=== PATIENT | male | born 1950 | race African-American/Black ===

== ENCOUNTER 2019-02-09 16:31 | Inpatient (IN) | payer MEDICARE ==
[2019-02-09] MEDS ORDERED: Acetaminophen 325 MG TAB PO PRN (16:48)
[2019-02-09] MEDS ORDERED: Ondansetron PF 4 MG/2 ML Vial IVP PRN (16:48)
[2019-02-09 17:30] LABS: #Lymphocytes 0.6 thou/uL (1.20-3.40); #Monocytes 0.1 thou/uL (0.11-0.59); #Neutrophils 4.2 thou/uL (1.40-6.50); %Basophils 0.7 % (0.0-1.0); %Eosinophils 0.1 % (0.0-10.0); %Lymphocytes 11.9 % (21.0-51.0); %Monocytes 1.3 % (0.0-10.0); Hemoglobin 13.6 g/dL (14.0-18.0); Mean Corpuscular HGB CONC 33.1 g/dL (32.0-36.0); Mean Corpuscular Hemoglobin 31.3 pg (27.0-31.0); Mean Corpuscular Volume 94.5 fL (78.0-98.0); Mean Platelet Volume 6.6 fL (7.4-10.4); Platelet Count 305 thou/uL (130-400); RBC Distribution Width 12.1 % (11.5-14.5); Red Blood Cell (RBC) Count 4.34 mill/uL (4.70-6.10); White Blood Cell (WBC) Count 4.8 thou/uL (4.8-10.8)
[2019-02-09 17:36] LABS: INR-International Normal Ratio 1.1; PTT 27.8 SEC (22.9-36.1); Prothrombin Time 13.7 SEC (12.0-14.7)
[2019-02-09 17:50] LABS: Anion Gap 11 mmol/L (10-20); BUN (Urea Nitrogen) 10 mg/dL (8.4-25.7); Calc. Creatinine Clearance 0 mL/min (70-130); Calcium 9.1 mg/dL (7.8-10.44); Carbon Dioxide 24 mmol/L (23-31); Chloride 103 mmol/L (98-107); Estimated GFR-MDRD Greater than 90; Glucose 186 mg/dL (80-115); Potassium 3.8 mmol/L (3.5-5.1); Sodium 134 mmol/L (136-145)
[2019-02-09] MEDS ORDERED: traZODone HCl 150 MG TAB PO PRN (17:50)
[2019-02-09] MEDS: Sodium Chloride 0.9% 1,000 ML IV SCH ×2 (18:14→20:02)
[2019-02-09] MEDS: Dexamethasone 4 MG in Sodium Chloride 0.9% 50 ML IVPB SCH ×2 (18:21→23:02)
--- NOTE | 2019-02-09 18:36 | CT ---
CT cervical spine without contrast: Multiple axial tones obtained through cervical spine with multiplanar reconstruction. INDICATIONS: Cervical stenosis with spinal cord compression. Preop. COMPARISON: none FINDINGS: Moderate to severe hypertrophic degenerative changes of cervical spine noted. Loss of disc space at a ll levels. Prominent hypertrophic spurring from the cervical vertebra seen anteriorly and laterally with bridging osteophytes. Posterior spondylosis is prominent multiple levels as described. No evidence of acute fracture. C3-4: Posterior disc bulge and spondylosis compress the cord centrally and to the right producing mod erate central canal stenosis. Bilateral foraminal stenosis. C4-5: Disc bulge and spondylosis mild compressed anterior cord. Bilateral foraminal stenosis. Moderat e cervical canal stenosis. C5-6: Posterior disc bulge and spondylosis compress the cord. Moderate cervical canal stenosis. Bilat eral foraminal stenosis. C6-7: Posterior disc bulge and spondylosis compress the cord. Moderate to severe cervical canal steno sis and cord compression. Bilateral foraminal stenosis. IMPRESSION: Moderate to severe hypertrophic degenerative changes of the cervical spine. Cord compression and cerv ical canal stenosis at multiple levels as noted above.
--- NOTE | 2019-02-09 18:59 | PRG ---
DATE OF SERVICE: 02/09/2019 ADDITIONAL DICTATED FOR PHYSICIAN: Huang Fernandez MD SUBJECTIVE: This is a progress note for Mr. You upon his arrival to [facility]. He was transferred from [facility], and a complete H and P consult note was dictated with Alfonzo. The patient remains stable at this time. He was transferred for multilevel severe cervical stenosis and spinal cord compression associated with right upper and lower extremity paresthesias and right upper extremity weakness. He reports imbalance and multiple recent falls over the last several weeks. He denies any complaints of pain in his neck, arms, or legs. He arrives in an [place] collar that was ordered prior to transfer. He received 10 mg of Decadron IV and 40 mg of Protonix IV prior to transfer. PLAN: At this time is to take the patient to the OR tomorrow morning for urgent surgical decompression of his cervical spine. He will be undergoing a C3 through C7 ACDF as well as C3 through C7 laminectomies, partial facetectomies, and foraminotomies with screw and georgette fixation. Risks versus benefits of this surgery were discussed with the patient this evening with his family at bedside. All questions were answered at this time. Dr. Fernandez will meet the patient tomorrow morning and again review surgical plan and answer any further questions the patient or family may have. MRI of the cervical spine was completed at [facility], however, I have ordered a CT of the cervical spine without contrast for further surgical planning. I have ordered 4 mg of Decadron q.6 hours as well as 40 mg of Protonix daily. I have also ordered trazodone as this is one of the patient's home medications that he is requested to help with sleeping. The patient will be n.p.o. at midnight. Please call with any changes. Otherwise, we will see the patient in the morning and take him to surgery. Job ID: [id number]
[2019-02-09] MEDS: HYDROcodone/Acetaminophen 7.5/325 mg Tablet PO PRN (20:03)
[2019-02-09 22:21] VITALS: BMI 23.6
[2019-02-10 05:42] LABS: #Lymphocytes 0.9 thou/uL (1.20-3.40); #Monocytes 0.3 thou/uL (0.11-0.59); #Neutrophils 4.7 thou/uL (1.40-6.50); %Basophils 0.1 % (0.0-1.0); %Lymphocytes 15.3 % (21.0-51.0); %Monocytes 4.6 % (0.0-10.0); Hemoglobin 12.6 g/dL (14.0-18.0); Mean Corpuscular HGB CONC 32.5 g/dL (32.0-36.0); Mean Corpuscular Hemoglobin 30.7 pg (27.0-31.0); Mean Corpuscular Volume 94.5 fL (78.0-98.0); Mean Platelet Volume 6.7 fL (7.4-10.4); Platelet Count 289 thou/uL (130-400); RBC Distribution Width 12.1 % (11.5-14.5); Red Blood Cell (RBC) Count 4.11 mill/uL (4.70-6.10); White Blood Cell (WBC) Count 5.9 thou/uL (4.8-10.8)
[2019-02-10] MEDS: Dexamethasone 4 MG in Sodium Chloride 0.9% 50 ML IVPB SCH ×3 (05:52→17:20)
[2019-02-10 05:57] LABS: Anion Gap 10 mmol/L (10-20); BUN (Urea Nitrogen) 10 mg/dL (8.4-25.7); Calc. Creatinine Clearance 102 mL/min (70-130); Calcium 8.9 mg/dL (7.8-10.44); Carbon Dioxide 23 mmol/L (23-31); Chloride 106 mmol/L (98-107); Estimated GFR-MDRD Greater than 90; Glucose 170 mg/dL (80-115); Potassium 3.7 mmol/L (3.5-5.1); Sodium 135 mmol/L (136-145)
[2019-02-10] MEDS ORDERED: Sodium Chloride 0.9% 10 ML ONE ×2 (06:25→06:59)
[2019-02-10] MEDS ORDERED: Bacitracin Zinc Ointment 30 gm TUBE ONE (06:25)
[2019-02-10] MEDS ORDERED: Thrombin 5000 UNITS/5 ML VIAL ONE ×2 (06:25→11:50)
[2019-02-10] MEDS ORDERED: Midazolam HCl 2 mg/2 ml Vial ONE (06:38)
[2019-02-10] MEDS ORDERED: Fentanyl 250 MCG/5 ML VIAL ONE (06:38)
[2019-02-10] MEDS ORDERED: SUGAMMADEX SODIUM 500 MG/5 ML VIAL ONE (06:39)
[2019-02-10] MEDS ORDERED: HYDROmorphone 0.5 MG/0.5 ML SYRINGE ONE (06:39)
[2019-02-10] MEDS ORDERED: SUGAMMADEX SODIUM 200 MG/2 ML VIAL ONE (06:39)
[2019-02-10] MEDS ORDERED: Fentanyl 100 MCG/2 ML VIAL ONE ×2 (08:56→13:41)
[2019-02-10] MEDS ORDERED: FLU VACC TS2019-20(65YR UP)/PF 180 MCG/0.5 ML SYRINGE IM ONE (09:00)
[2019-02-10] MEDS ORDERED: Prevnar 13-Val Conj/PF 0.5 ML SYRINGE IM ONE (09:00)
[2019-02-10] MEDS ORDERED: Dexamethasone 20 MG/5 ML VIAL ONE (10:17)
[2019-02-10] MEDS ORDERED: PROPOFOL 200 MG/20 ML VIAL ONE (10:17)
[2019-02-10] MEDS ORDERED: ePHEDrine/0.9% NaCl/PF SYRINGE 50 mg/10 ml ONE (10:17)
[2019-02-10] MEDS ORDERED: Ondansetron PF 4 MG/2 ML Vial ONE (10:17)
[2019-02-10] MEDS ORDERED: Rocuronium Bromide 10 MG/ML (10ML VIAL) ONE (10:17)
[2019-02-10] MEDS ORDERED: PHENYLEPHRINE-NS 100 MCG/ML 10 ML SYRINGE ONE ×2 (10:17→12:01)
[2019-02-10] MEDS ORDERED: Rocuronium Bromide 50 MG/5 ML VIAL ONE (10:33)
[2019-02-10] MEDS ORDERED: CEFAZOLIN 1 GM VIAL ONE (10:33)
--- NOTE | 2019-02-10 14:14 | OP ---
DATE OF PROCEDURE: 02/10/2019 LOCATION: OR 12. STORE HOST: Kirsten Llamas PA-C. PREPROCEDURE DIAGNOSES: Multilevel cervical myelopathy and radiculopathy with acute on subacute dysfunction with circumferential stenosis. POSTPROCEDURE DIAGNOSIS: Multilevel cervical myelopathy and radiculopathy with acute on subacute dysfunction with circumferential stenosis. PROCEDURES PERFORMED: 1. Anterior C3-C4, C4-C5, C5-C6, C6-C7 decompressions, diskectomies, placement of interbody spacers, packed with local bone autograft obtained from same incision for allograft and arthrodesis C3-C4, C4-C5, C5-C6, C6-C7. 2. Anterior cervical plate and screw fixation, C3, C4, C5, C6, and C7. 3. Use of operative microscope for microdissection. 4. C3, C4, C5, C6, C7 laminectomies, partial facetectomies, and foraminotomies. 5. Screw and georgette fixation C3, C4, C5, C6, and C7. 6. Posterior lateral arthrodesis C3, C4, C5, C6, C7 with use of local bone autograft and allograft for arthrodesis. DESCRIPTION OF PROCEDURE: After informed consent was obtained from the patient, the patient was brought to the OR. Proper patient, pause, and identification were carried out. He was placed under excellent general endotracheal anesthesia and positioned supine on the OR table. Cervical spine was kept in neutral position. We then identified a right anterior oblique maverick to allow for approach at C3, C4, C5, C6, C7 segments. This was drawn out. The area was sterilely cleansed, prepared, and draped. Proper patient, pause, and identification were carried out. The wound was then opened following sterile cleansing, preparation, and draping, then proceeded lateral to the larynx and pharynx and medial to the right carotid sheath. We identified the prevertebral layer of deep cervical fascia and the longus colli muscles. These were swept laterally and retraction placed and removed osteophytes throughout multiple levels and distraction at C3-C4 then occurred. The microscope was brought in for microdissection and performed a C3-C4 diskectomy with uatsdin of lordosis and decompression of neural elements. This space was packed with local bone autograft, obtained from same incision on allograft at C3-C4, and this was repeated at C4-C5, C5-C6, C6-C7 with decompressions of the spinal cord nerve roots, placement of interbody spacer with endplate preparation, and arthrodesis initiation from C3 through C7. We then placed anterior cervical plate and screw fixation from C3 through C7. Final tightening localization confirmed satisfactory placement. Copious irrigation occurred throughout as did maximizing hemostasis. The wound was then closed in anatomic layers following placement of a drain. The patient was placed prone following the Heller Lindsey heading pinner and secured to a skull and a posterior approach to allow from the midline linear region from C3 through C7 was drawn out. This area was sterilely cleansed, prepared, and draped. Proper patient, pause, and identification were carried out again. The wound was then opened with combination of sharp, monopolar, and blunt dissection, and we identified C3, C4, C5, C6, C7 dorsal spines and lamina and facet complexes. Screws were then placed from C3 through C7 lateral mass region. Laminectomy was performed from C3 through C7 and a small amount of spinal fluid was identified in the left C5 region, where there was area of thinning of the dura. A small 6-0 Prolene suture was placed and there was no more CSF leak. There was a very little CSF loss. DuraSeal was placed over this region later in the case. Copious irrigation occurred throughout as did maximizing hemostasis. Rods were placed. Final tightening occurred. Posterolateral arthrodesis was initiated with local bone autograft obtained from the same incision on allograft. The wound was then hemostasis maximally throughout and closed in anatomic layers following sprinkling of vancomycin powder. The patient then emerged from anesthesia. Job ID: [id number]
--- NOTE | 2019-02-10 14:36 | HP ---
SUBJECTIVE: Mr. You is a 68-year-old man, who has had an acute on subacute decline in spinal cord function and that he has gotten weaker in his right greater than left upper extremities with increased dysfunction in his wrist and finger extension, contracture development, and hand intrinsic weakness with falls. The most recent fall resulted in increase in all of the symptoms. An MRI done at [facility] demonstrated multilevel cervical canal compromise, in particular with cord contusion and C3-C4 circumferential stenosis with multilevel bilateral neuroforaminal stenosis from C3 through C7. CT scan confirmed this with a loss of lordosis as well with significant osteophytic overgrowth. 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 He does have a hyperlipidemia and does use nicotine. Given the magnitude of the need for surgery, I have recommended transfer to [place], so that we could do this in an expeditious manner. He was kept for observation overnight. I met with he and his family. 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 He has mild lower extremity weakness as well throughout multiple myotomes. He has a well-fitting cervical collar. I have recommended surgery. I have recommended an anterior C3 through C7 and posterior C3 through C7 decompression, stabilization with anterior plating, and a posterior screw and georgette fixation. This would allow us to restore his normal lordosis and maximally decompress the spinal cord. The problem with only addressing C3-C4 is again I think his cord compression and his cord contusion as a major player obviously in his symptoms; however, his multilevel neuroforaminal stenosis will make any type of improvement in his distal hand function very difficult if not impossible unless we free this area up as well. This will allow us to stabilize the subaxial cervical spine anteriorly and posteriorly and avoid extension in the cervicothoracic junction. informed consent for that surgery. Goals, indications, risks, alternatives, complications were discussed in detail with the patient and his family. They wish that we proceed. I should note that approximately 3 months postoperative we will need to arrange for CTA and formal diagnostic and therapeutic cerebral angiogram for his PCOM aneurysm. DIAGNOSES: 1. Cervical myelopathy with multilevel radiculopathy and acute on subacute decompensation. 2. 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 3. Nicotine user. Job ID: [id number]
[2019-02-10] MEDS ORDERED: tiZANidine HCl 4 MG TAB PO PRN (15:58)
[2019-02-10] MEDS: Pantoprazole 40 MG VIAL IVP SCH (16:21)
[2019-02-10] MEDS ORDERED: Labetalol HCl 100 MG/20 ML VIAL SLOW IVP PRN (17:03)
[2019-02-10] MEDS: Morphine 2 MG/ML SYRINGE SLOW IVP PRN (17:18)
[2019-02-10] MEDS: Sodium Chloride 0.9% 1,000 ML IV SCH (17:20)
[2019-02-10] MEDS: CEFAZOLIN 2 GM in Premix Bag 1 BAG IVPB SCH (17:40)
[2019-02-10] MEDS: hydrALAZINE 20 MG/ML VIAL SLOW IVP PRN ×2 (17:46→21:08)
[2019-02-10] MEDS: HYDROcodone/Acetaminophen 7.5/325 mg Tablet PO PRN (20:53)
[2019-02-11] MEDS: Dexamethasone 4 MG in Sodium Chloride 0.9% 50 ML IVPB SCH ×4 (00:20→17:15)
[2019-02-11] MEDS: CEFAZOLIN 2 GM in Premix Bag 1 BAG IVPB SCH ×3 (00:22→16:31)
[2019-02-11] MEDS: hydrALAZINE 20 MG/ML VIAL SLOW IVP PRN ×2 (02:02→08:33)
[2019-02-11] MEDS ORDERED: Dexamethasone 4 MG TAB PO SCH (06:00)
[2019-02-11] MEDS: Pantoprazole 40 MG VIAL IVP SCH (08:33)
--- NOTE | 2019-02-11 09:25 | PRG ---
DATE OF SERVICE: 02/11/2019 Mr. You is 1 day out from anterior-posterior C3 through C7 decompression and fusion. Since surgery, Mr. You has regained the ability to straighten his fingers. He has regained motion in the right lower extremity. He is very excited with his neurological improvement. The neck is sore anteriorly and posteriorly. He has a little bit of dysphagia, but has done relatively well with liquids overnight. I do not see any fevers recorded among the electronic vital signs. Blood pressures have been in the 150s to 160s. Neurological examination, there is mild upper motor neuron weakness involving the hand intrinsics and the extensors of the upper extremities more so than the flexors. The anterior drain put out 60 mL by 6 p.m. last night and another 30 by 3 a.m. For Mr. You, we will continue to watch the drain output. I would like the anterior cervical drains to be very low output before removal. We will look for an average output of his drain less than 3 mL an hour on average before we can remove it. We will continue antibiotics until the drain is out. Mr. You will need occupational and physical therapy and perhaps inpatient rehab placement. I believe, he can move to the floor when there is a bed available to do so. Job ID: [id number]
[2019-02-11] MEDS ORDERED: Hydrocodone-Acetamin 15 ML UDCUP PO PRN (09:34)
--- NOTE | 2019-02-11 10:11 | CON ---
DATE OF CONSULTATION: 02/11/[address] Fernandez, asking for medical management, Hospitalist Group. HISTORY OF PRESENT ILLNESS: The patient is a 68-year-old male, who underwent cervical surgery, which involved anterior C3-C4 and C4-C5 and C5-C6 and C6-C7 decompressions and diskectomies and C3, C4, C5, C6, and C7 laminectomies by Dr. Fernandez yesterday. This is his postoperative day #2. He complains about the neck pain. Pain level is rated at 10. He is asking for a liquid form of hydrocodone because of his sore throat. PAST MEDICAL HISTORY: Positive for, 1. Hypertension. 2. Hyperlipidemia. ALLERGIES: NONE. PAST SURGICAL HISTORY: Bilateral knee surgeries from trauma during playing football in high school. SOCIAL HISTORY: He smokes 1 pack per day. He drinks alcohol occasionally. He does not even use any illicit drugs. FAMILY HISTORY: Mother still alive and she has medical problems. MEDICATIONS: 1. Tylenol p.r.n. 2. Dexamethasone tapering dose. 3. Morphine sulfate q.2 hours p.r.n. IV push. 4. Pantoprazole 40 mg IV piggyback. 5. Trazodone p.r.n. 6. Tizanidine p.r.n. PHYSICAL EXAMINATION: GENERAL: He is in quite severe pain during my evaluation. He tries to stay still, which decreases the amount of pain he gets. HEENT: His head is atraumatic and normocephalic. Eyes; PERRLA. Sclerae are nonicteric. Oral mucosa is somewhat dry. NECK: The right side of the neck is dressed and there is a drain coming out from underneath the dressing. LUNGS: Clear. HEART: S1 and S2 normal. ABDOMEN: Soft, nontender, and nondistended. EXTREMITIES: No clubbing, cyanosis, or edema. NEUROLOGICAL: He is alert and oriented x4. There is some decreased sensation over his right forearm and right hand along with right lower extremity below the knee down to his right foot. There is a mild difference in the strength between the right and left lower extremity. He follows my commands. LABORATORY DATA: None today. IMPRESSION: Multiple-level cervical myelopathy and radiculopathy with acute on subacute dysfunction with circumferential stenosis. PLAN: I am going to switch his hydrocodone to elixir form since he complains about the sore throat, most likely from endotracheal tube. He does not want to have any nicotine patch, he was offered. He will be transferred to the surgical floor as soon as Neurosurgery Team makes decision. We will continue his DVT prophylaxis with SCDs. Job ID: [id number]
[2019-02-11] MEDS: Sodium Chloride 0.9% 1,000 ML IV SCH (11:34)
[2019-02-11] MEDS: Morphine 2 MG/ML SYRINGE SLOW IVP PRN (14:00)
[2019-02-12] MEDS: Morphine 2 MG/ML SYRINGE SLOW IVP PRN ×5 (00:04→23:36)
[2019-02-12] MEDS: Dexamethasone 4 MG in Sodium Chloride 0.9% 50 ML IVPB SCH ×5 (00:10→23:36)
[2019-02-12] MEDS: Sodium Chloride 0.9% 1,000 ML IV SCH ×3 (00:11→14:17)
[2019-02-12] MEDS: CEFAZOLIN 2 GM in Premix Bag 1 BAG IVPB SCH ×3 (01:35→18:22)
[2019-02-12] MEDS: Pantoprazole 40 MG VIAL IVP SCH (08:35)
--- NOTE | 2019-02-12 11:30 | PRG ---
DATE OF SERVICE: 02/12/2019 Mr. You is 3 days out from anterior-posterior cervical decompression and fusion for central cord injury. He is making a nice recovery. He is very excited about the return of neurological function in his hands and legs. He is working with physical therapy while he is in the hospital. I do not see any fevers recorded among our electronic vital signs. Blood pressure has been in the 140s. He has improved strength in the hands. Today, we will work with physical therapy and anticipate inpatient rehabilitation placement. Hopefully, that can be done tomorrow. Starting rehabilitation as quickly as possible, we will give him good chance to recover from the spinal cord injury. Job ID: [id number]
[2019-02-13] MEDS: hydrALAZINE 20 MG/ML VIAL SLOW IVP PRN ×2 (05:24→08:08)
[2019-02-13] MEDS: Dexamethasone 3 MG in Sodium Chloride 0.9% 50 ML IVPB SCH ×3 (05:25→18:36)
[2019-02-13] MEDS ORDERED: Dexamethasone 4 MG TAB PO SCH (06:00)
[2019-02-13] MEDS: Pantoprazole 40 MG VIAL IVP SCH (08:08)
--- NOTE | 2019-02-13 13:30 | PRG ---
DATE OF SERVICE: 02/13/2019 This is Dinesh Rodríguez PA-C dictating a report for Huang Fernandez MD. Mr. You is postoperative day #3, having undergone anterior and posterior cervical fusions. His IRVIN drain was removed yesterday. His blood pressure has been a little high in the 150s, but he has so far been afebrile. Today, he appears to have some posterior neck pain and spasm. He states he has not yet been walking. He continues to have Rosario catheter in place and we would like to keep this 1 more day. I reviewed the incision and although there is some bloody drainage on his dressing, there does not appear to be any type of active drainage. There was a small CSF leak intraoperatively, but the patient has no headache at this time, especially when sitting up. Right now, he needs to work on mobilization with Physical Therapy, but we are also working on placement at [facility]. He is ready to go at any point, and he is improving neurologically. In regard to his function, he does have improved strength into the right leg, but especially into the right arm and right hand finance business manager. He does continue with moderate hand finance business manager weakness on the right. Again, we hope for rehab in the next day or two and all his paperwork has been completed. Job ID: [id number]
[2019-02-13] MEDS: Sodium Chloride 0.9% 1,000 ML IV SCH ×2 (14:23→18:45)
--- NOTE | 2019-02-13 17:41 | PDOC.HOSPP ---
- Subjective Encounter Date: 02/13/19 Encounter Time: 17:35 Subjective: f/u s/p ACDF POD #3 with cervical myelopathy/radiculopathy with stenosis. Receiving Dexamethasone, Morphine Sulfate IV. - Objective Vital Signs & Weight: Vital Signs (12 hours) Temp Pulse Resp BP BP BP Pulse Ox 02/13/19 15:49 98.7 F 73 18 177/91 H 100 02/13/19 11:55 98.9 F 61 16 152/77 H 98 02/13/19 09:13 142/73 H 02/13/19 08:08 62 156/81 H 02/13/19 07:59 98.4 F 65 16 156/81 H 99 02/13/19 07:42 98.5 F 62 18 155/83 H 98 02/13/19 07:16 99 Weight Weight 173 lb 7 oz Most Recent Monitor Data Heart Rate from ECG 87 NIBP 141/82 NIBP BP-Mean 101 Respiration from ECG 20 SpO2 97 I&O: 02/12/19 02/13/19 02/14/19 06:59 06:59 06:59 Intake Total 3085 1100 Output Total 1285 575 Balance 1800 525 Result Diagrams: 02/10/19 05:13 02/10/19 05:13 Additional Labs: Laboratory Tests 02/09/19 02/09/19 02/10/19 17:22 17:23 05:13 Hgb 13.6 L Neutrophils % 86.0 H 80.0 H Sodium 134 L Creatinine 0.83 Hospitalist ROS - Medication Medications: Active Medications Generic Name Dose Route Start Last Admin Trade Name Freq PRN Reason Stop Dose Admin Hydrocodone Bitart/Acetaminophen 15 ml 02/11/19 09:34 02/11/19 11:30 Hydrocodone-Apap 7.5-325/15 PO 15 ml Q4H PRN Administration Pain Hydralazine HCl 10 mg 02/10/19 17:03 02/13/19 08:08 Apresoline SLOW IVP 10 mg Q15MIN PRN Administration Sbp Greater Than 150 Sodium Chloride 1,000 mls @ 75 mls/hr 02/09/19 17:00 02/13/19 14:23 Normal Saline 0.9% IV Not Given .[id number] DEMETRA Dexamethasone 3 mg/ Sodium 50.75 mls @ 100 mls/hr 02/13/19 06:00 02/13/19 14: 22 Chloride IVPB 02/15/19 00:31 50.75 mls Q6H DEMETRA Administration Morphine Sulfate 2 mg 02/10/19 15:58 02/12/19 23:36 Morphine SLOW IVP 2 mg Q2H PRN Administration Severe Pain (7-10) Pantoprazole Sodium 40 mg 02/10/19 09:00 02/13/19 08:08 Protonix IVP 40 mg DAILY DEMETRA Administration Trazodone HCl 150 mg 02/09/19 17:50 02/09/19 20:03 Desyrel PO 150 mg HSPRN PRN Administration Insomnia - Exam General Appearance: NAD, awake alert Eye: PERRL, anicteric sclera ENT: normocephalic atraumatic, no oropharyngeal lesions Neck: supple, no JVD, no thyromegaly Neck - other findings: post-surgical changes of neck Heart: RRR, no murmur, no gallops, no rubs Respiratory: CTAB, no wheezes, no rales, no ronchi Gastrointestinal: soft, non-tender, non-distended, normal bowel sounds, no palpable masses Extremities: no cyanosis, no clubbing, no edema Skin: normal turgor Neurological: cranial nerve grossly intact Neurological - other findings: decreased loan supervisor strength R Musculoskeletal: normal tone, generalized weakness Psychiatric: normal affect, A&O x 3 Hosp A/P (1) Cervical myelopathy with cervical radiculopathy Code(s): M47.12 - OTHER SPONDYLOSIS WITH MYELOPATHY, CERVICAL REGION Status: Acute Plan: s/p ACDF POD #3, continue PT/OT, mobilization, pain control (2) Hyponatremia Code(s): E87.1 - HYPO-OSMOLALITY AND HYPONATREMIA Status: Acute Plan: Mild, encourage regular po intake (3) Elevated blood pressure reading Code(s): R03.0 - ELEVATED BLOOD-PRESSURE READING, W/O DIAGNOSIS OF HTN Status : Chronic Plan: PRN Hydralazine/Labetalol - Plan PT/OT, executive secretary social welfare, speech therapy, out of bed/ambulate, DVT proph w/SCDs Stable currently Continue pain control with Morphine Sulfate/Tizanidin/Dexamethasone OOB with PT CM for SNF/HH options Full liquid diet
--- NOTE | 2019-02-13 17:44 | PQF ---
AUSTIN SETHI MORGAN, PA-C [id number] SURG B- [id number] CLINICAL DOCUMENTATION IMPROVEMENT CLARIFICATION FORM: ICD-10 Updated PLEASE DO AN ADDENDUM TO THE PROGRESS NOTE WITH ANY DOCUMENTATION UPDATES OR ADDITIONS AND CARRY THROUGH TO DC SUMMARY. THANK YOU. DATE: 02/13/19 ATTN: Dinesh Rodríguez PA-C Please exercise your independent, professional judgment in responding to the clarification form. Clinical indicators are provided on the bottom of this form for your review Please check appropriate box(s): [ ] Small CSF leak is a complication of current/recent surgery [ ] Small CSF leak is not a complication of current/recent surgery [ ] Other diagnosis [ ] Unable to determine In addition, please specify: Present on Admission (POA): [ ] Yes [ ] No [ ] Unable to determine CLINICAL INDICATORS - SIGNS / SYMPTOMS / LABS / RESULTS AND LOCATION IN MR 02/13 Anne: "small CSF leak intraoperatively" RISK FACTORS / RESULTS AND LOCATION IN MR Recent surgery--> 02/13 Anne: "POD #3 anterior and posterior cervical fusions " TREATMENT / RESULTS AND LOCATION IN MR IV Fluids--> NS at 75 02/09-02/13 per orders Monitor dressing per 02/13 Anne note (This form is maintained as a part of the permanent medical record) 2014 [employer] All Rights Reserved Carmelina Sterling RN, BSN, CCDS [email or web address]
[2019-02-13] MEDS: Morphine 2 MG/ML SYRINGE SLOW IVP PRN (18:33)
[2019-02-14] MEDS: Morphine 2 MG/ML SYRINGE SLOW IVP PRN (00:21)
[2019-02-14] MEDS: Dexamethasone 3 MG in Sodium Chloride 0.9% 50 ML IVPB SCH ×3 (00:23→13:34)
[2019-02-14] MEDS: hydrALAZINE 20 MG/ML VIAL SLOW IVP PRN (05:30)
--- NOTE | 2019-02-14 08:08 | PRG ---
DATE OF SERVICE: 02/14/2019 Mr. You is 4 days out now from anteroposterior decompression and fusion for cervical stenosis and cervical spinal cord injury. He is regaining his neurological function and he is happy about that. He would like to eat some more solid food. Overnight, the highest temperature recorded among the vital signs is 99.8 degrees Fahrenheit. Blood pressures have between 150s and 160s. There is improved neurological function since the surgery. Bandages are still in place. Today, Mr. You can try some more solid food. He can be transferred to inpatient rehabilitation as soon as a bed is available. Bandages can be removed. Job ID: [id number]
[2019-02-14] MEDS: Pantoprazole 40 MG VIAL IVP SCH (08:23)
--- NOTE | 2019-02-14 09:55 | ULT ---
EXAM: Bilateral lower extremity venous ultrasound HISTORY: Risk for DVT. Spinal cord injury. COMPARISON: None TECHNIQUE: Multiplanar grayscale and color Doppler images were obtained in a bilateral lower extremit y venous ultrasound. Spectral analysis of the Doppler waveforms were performed. FINDINGS: The bilateral common femoral vein, profunda femoral veins, superficial femoral veins, and p opliteal veins are normal in appearance without visible thrombus. These vessels demonstrate normal compression, flow, and augmentation. The bilateral posterior tibial veins, profunda femoral veins and greater saphenous veins are patent w ithout evidence of DVT. IMPRESSION: No evidence of DVT in the left or right lower extremity.
[2019-02-14] MEDS: DEXAMETHASONE SOD PHOSPHATE IVPB SCH ×2 (13:28→17:50)
[2019-02-14] MEDS: SODIUM CHLORIDE 0.9% IVPB SCH ×2 (13:28→17:50)
[2019-02-14] MEDS ORDERED: Amlodipine 5 MG TAB PO SCH (15:30)
[2019-02-14] MEDS: Sodium Chloride 0.9% 1,000 ML IV SCH (17:50)
[2019-02-14 19:54] VITALS: BP 189/102; TEMP 98.8
--- NOTE | 2019-02-14 21:37 | DIS ---
DATE OF ADMISSION: 02/09/2019 DATE OF DISCHARGE: 02/14/2019 DISCHARGE DIAGNOSES: 1. Cervical myelopathy with radiculopathy, status post anterior cervical diskectomy with fusion of cervical spine. 2. Hyponatremia, mild. 3. Hypertension, mild. 4. Hyperlipidemia. PRIMARY SERVICE ATTENDING: Dr. Huang Fernandez with Neurosurgical Service. [facility] Hospitalist Service for medical comanagement. PERTINENT LABORATORY AND X-RAY FINDINGS: Hemoglobin ranged between 12.[address] of the cervical spine dated on 02/09/2019 showed [id number] hypertrophic degenerative changes of the entire cervical spine. Cord compression and cervical canal stenosis at multiple levels. Bilateral lower extremity venous Doppler study dated on 02/14/2019 showed no evidence for DVT. 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 The patient underwent anterior cervical diskectomy with fusion on 02/10/2019 and please see dictated operative note for full details. Hospitalist Service was consulted for medical comanagement, at which point the patient was initiated on Norvasc 2.5 mg daily for elevated blood pressure. The patient received general pain control at the direction of the primary surgical service and overall met appropriate milestones in the postoperative period. The patient was deemed an appropriate candidate for ongoing skilled care and will transition to inpatient rehabilitation on 02/14/2019. DISCHARGE MEDICATIONS: 1. Amlodipine 2.5 mg p.o. daily. 2. Enteric-coated aspirin 81 mg p.o. daily. 3. Amity 7.5/325 mg, 15 mL p.o. q.4 hours p.r.n. 4. Protonix 40 mg p.o. daily. 5. Crestor 20 mg p.o. at bedtime. 6. Tizanidine 4 mg p.o. t.i.d. p.r.n. 7. Trazodone 150 mg p.o. at bedtime p.r.n. FOLLOWUP: The patient to follow up with Dr. Huang Fernandez with Neurosurgical team. The patient may also follow up with his primary care provider, Dr. Alejandro Boles after discharge from inpatient rehabilitation. CONDITION ON DISCHARGE: Stable. ACTIVITY: Per neurosurgical recommendations. DIET: Regular. CODE STATUS: Full. DISPOSITION: Discharged to [facility] on 02/14/2019. Job ID: [id number]
[2019-02-15] MEDS ORDERED: Dexamethasone 2 MG in Sodium Chloride 0.9% 50 ML IVPB SCH (06:00)
[2019-02-15] MEDS ORDERED: Dexamethasone 1 MG TAB PO SCH (06:00)
[2019-02-15] MEDS ORDERED: Amlodipine 5 MG TAB PO SCH (09:00)
[2019-02-17] MEDS ORDERED: Dexamethasone 1 MG in Sodium Chloride 0.9% 50 ML IVPB SCH (06:00)
[2019-02-17] MEDS ORDERED: Dexamethasone 1 MG TAB PO SCH (06:00)
== END 2019-02-14 20:05 | DRG 454 ==
LOC: SURG B 16:31 → CCU 02-10 15:32 → SURG A 02-11 12:52
PROVIDERS: ADMIT Surgery; ATTEND Surgery
PROC: 0RG20A0 Fusion of 2 or more Cervical Vertebral Joints with Interbody Fusion Device, Anterior Approach, Anterior Column, Open Approach (ICD-10-PCS; principal; 2019-02-10)
PROC: 0RG2071 Fusion of 2 or more Cervical Vertebral Joints with Autologous Tissue Substitute, Posterior Approach, Posterior Column, Open Approach (ICD-10-PCS; 2019-02-10)
PROC: 0RT30ZZ Resection of Cervical Vertebral Disc, Open Approach (ICD-10-PCS; 2019-02-10)
DX: M48.02 Spinal stenosis, cervical region (principal); E87.1 Hypo-osmolality and hyponatremia; M47.12 Other spondylosis with myelopathy, cervical region; G96.0 Cerebrospinal fluid leak; I10 Essential (primary) hypertension; E78.5 Hyperlipidemia, unspecified; M54.12 Radiculopathy, cervical region; F17.200 Nicotine dependence, unspecified, uncomplicated; I72.8 Aneurysm of other specified arteries
CPT/HCPCS: 36415; 72125; 76000; 80048; 85025; 85610; 85730; 86850; 86900; 86901; 93970; C1713; C1768; C1776; C9113; J0131; J0360; J0690; J1100; J1170; J2250; J2270; J2405; J2704; J3010; J3370; J3490

== ENCOUNTER 2019-07-10 07:27 | Outpatient (CLI) | payer MEDICARE, OTHER ==
[2019-07-10 17:38] LABS: SARS-CoV-2 MS2 Positive; SARS-CoV-2 N Gene Negative; SARS-CoV-2 S Gene Negative; SARS-CoV-2 orf1ab Negative
== END 2019-07-10 07:28 | disposition home or self-care (01) ==
LOC: LABBT 07:27
PROVIDERS: ATTEND Neurological Surgery
DX: Z01.812 Encounter for preprocedural laboratory examination (principal); Z11.59 Encounter for screening for other viral diseases; I72.9 Aneurysm of unspecified site
CPT/HCPCS: 87635; U0003

== ENCOUNTER 2019-07-12 09:02 | Day surgery (SDC) | payer MEDICARE ==
[2019-07-10 09:50] VITALS: BMI 24.3
[2019-07-12] MEDS ORDERED: Heparin 10,000 UNITS/1 ML VIAL ONE (10:10)
== END 2019-07-12 11:10 | disposition home or self-care (01) ==
LOC: CCL 09:02
PROVIDERS: ATTEND Neurological Surgery
DX: Z53.9 Procedure and treatment not carried out, unspecified reason (principal); I67.1 Cerebral aneurysm, nonruptured; I10 Essential (primary) hypertension; F17.200 Nicotine dependence, unspecified, uncomplicated
CPT/HCPCS: J1644

== ENCOUNTER 2019-08-21 06:57 | Outpatient (CLI) | payer MEDICARE, OTHER ==
[2019-08-22 12:21] LABS: SARS-CoV-2 MS2 Positive; SARS-CoV-2 N Gene Negative; SARS-CoV-2 S Gene Negative; SARS-CoV-2 orf1ab Negative
== END 2019-08-21 06:58 | disposition home or self-care (01) ==
LOC: LABBT 06:57
PROVIDERS: ATTEND Neurological Surgery
DX: Z01.812 Encounter for preprocedural laboratory examination (principal); Z11.59 Encounter for screening for other viral diseases; I67.1 Cerebral aneurysm, nonruptured
CPT/HCPCS: 87635; U0003

== ENCOUNTER 2019-08-23 10:12 | Day surgery (SDC) | payer MEDICARE ==
[2019-08-18 14:46] VITALS: BMI 22.4
[~2019-08-23 10:12] MED LIST: Iopamidol 370 76% 100 ML VIAL ONE; Lidocaine 1% PF 5 ML VIAL ONE; PROPOFOL 200 MG/20 ML VIAL ONE
[2019-08-23] MEDS ORDERED: Heparin 10,000 UNITS/1 ML VIAL ONE ×2 (10:28→10:42)
[2019-08-23] MEDS ORDERED: Fentanyl 100 MCG/2 ML VIAL ONE (11:38)
[2019-08-23] MEDS ORDERED: Ondansetron HCl/PF 4 MG/2 ML Vial IVP PRN (13:07)
[2019-08-23] MEDS ORDERED: Promethazine HCl 25 MG/ML VIAL IM/IV PRN (13:07)
[2019-08-23] MEDS ORDERED: Non-Formulary Medication 1 EACH PO PRN (13:07)
== END 2019-08-23 14:35 | disposition home or self-care (01) ==
LOC: CCL 10:12
PROVIDERS: ATTEND Neurological Surgery
PROC: B30 Imaging, Upper Arteries, Plain Radiography (ICD-10-PCS; principal; 2019-08-23)
DX: I67.1 Cerebral aneurysm, nonruptured (principal)
CPT/HCPCS: 36215; 36223; 93005; 93010; J1644; J2704; J3010; Q9967